=== PATIENT | female | born 1990 | race Caucasian/White ===

== ENCOUNTER → 2019-07-18 | Day surgery (SDC) | payer BC ==
[~2019-07-18] MED LIST: ACETAMINOPHEN 1000 MG/100 ML 100 ML IV ONE; ACETAMINOPHEN/CODEINE 300MG - 30MG TAB ONE; BUPIVACAINE 0.25%/EPI 30ML SDV INJ ONE; CEFAZOLIN SOD 1 GM VIAL ONE; CEFOXITIN 2GM/ D5W 50ML 50 ML IV ONE; DEXAMETHASONE SOD PHOS INJ 4 MG/ML VIAL ONE; FENTANYL CITRATE/PF 100MCG/2 ML INJ ONE; GLYCOPYRROLATE INJ 1MG/ 5 ML SYR ONE; KETOROLAC TROMETHAMINE 30 MG/ML VIAL ONE; LIDOCAINE HCL 2% LOCAL INJ 5 ML SDV VIAL INJ ONE; MIDAZOLAM HCL 2 MG/2 ML VIAL ONE; MORPHINE SULFATE INJ 10 MG/ML ONE; NEOSTIGMINE 5 MG/5ML SYR ONE; ONDANSETRON HCL INJ 2MG/ML 2ML 2 MG/ML VIAL ONE; POTASSIUM CHLORIDE 20 MEQ TAB CR PO ONE; PROPOFOL IV EMULSION 10 MG/ML 20 ML VIAL ONE; ROCURONIUM BROMIDE 10 MG/ML 5ML VIAL ONE; SEVOFLURANE INHAL SOLN 250 ML PEN BTL ONE; WELBUTRIN PO; ZOLOFT50 MG PO
--- OUTSIDE RECORDS SUMMARY | 2019-07-18 06:30 | XMS REPORT | Summary of Care ---
Author Author [facility] - Health Organization [facility] - Health Address Unknown Phone Unavailable Care Team Providers Care Ccnp Name Role Phone Kris Fragaaf Jean Claude PCP Reason for Referral * (Routine) Referred By Contact Referred To Contact Status Reason Specialty Diagnoses / Procedures Vinh Pandey [address] [address] New Request [facility] Diagnoses RUQ pain Gallstones P rocedures Discharge Follow-Up: Specialty Service [facility]; 1 Week * Radiology Services (STAT) Referred By Contact Referred To Contact Status Reason Specialty Diagnoses / Procedures Vinh Pandey FN[address] [address] New Request Diagnostic Diagnoses Radiology RUQ pain P rocedures US GALL BLADDER * Radiology Services (STAT) Referred By Contact Referred To Contact Status Reason Specialty Diagnoses / Procedures Vinh Pandey DIRECTOR OF PRODUCT DEVELOPMENT[address] [address] New Request Diagnostic Diagnoses Radiology RUQ pain P rocedures US GALL BLADDER Reason for Visit * Reason Comments Abdominal Pain * Auth/Cert Referred By Contact Referred To Contact Status Reason Specialty Diagnoses / Procedures [facility] Emergency Dept [address] [place] [address] Emergency Medicine Encounter Details Care Team Description Date Type Department Vinh Pandey FNP [address] [place], [place] [id number] Gallstones (Primary Dx); RUQ pain 06/23/2019 Emergency [facility] [address] [place] [address] Allergies No Known Allergiesdocumented as of this encounter (statuses as of 06/23/2019) Medications End Date Status Medication Sig Dispensed Refills Start Date Active proMETHazine 25 mg Take 1 tablet 24 tablet 0 tabletIndications: RUQ by mouth 9 pain, Gallstones every 6 (six) hours as needed for Nausea and Vomiting (N/V) for up to 24 doses. Active traMADol 50 mg Take 1 tablet 12 tablet 0 tabletIndications: RUQ by mouth 9 pain, Gallstones every 6 (six) hours as needed for Pain (scale 7-10) for up to 12 doses. 07/03/2019 Active famotidine (PEPCID) 20 mg Take 1 tablet 20 tablet 0 tabletIndications: RUQ by mouth 2 9 pain, Gallstones (two) times daily for 10 days. documented as of this encounter (statuses as of 06/23/2019) Active Problems No known active problemsdocumented as of this encounter (statuses as of 06/23/2019) Social History Date Tobacco Use Types Packs/Day Years Used Never Assessed Sex Assigned at Date Recorded Not on file Industry Job Start Date Occupation Not on file Not on file Not on file Travel End Travel History Travel Start No recent travel history available. documented as of this encounter Last Filed Vital Signs Reading Time Taken Comments Vital Sign 131/74 06/23/2019 4:02 PM CDT Blood Pressure 81 06/23/2019 4:02 PM CDT Pulse 36.4 C (97.5 F) 06/23/2019 1:15 PM CDT Temperature 18 06/23/2019 4:02 PM CDT Respiratory Rate 98% 06/23/2019 4:02 PM CDT Oxygen Saturation - - Inhaled Oxygen Concentration 122.5 kg (270 lb) 06/23/2019 1:15 PM CDT Weight - - Height - - Body Mass Index documented in this encounter Discharge Instructions * Instructions* Vinh Pandey, JEAN-PAUL - 06/23/2019 DIAGNOSIS 1. Gallstone 2. RUQ pain NO LIFE-THREATENING FINDINGS ON TODAY'S EXAM. PROCEDURES IN THE ER TODAY: Orders Placed This Encounter Procedures US GALL BLADDER CBC WITH DIFF BASIC METABOLIC PANEL (NA, K, CL, CO2, GLUCOSE, BUN, CREATININE, CA) POCT TEST CBC WITH DIFFERENTIAL MEDICATIONS ADMINISTERED IN THE ER TODAY: Medications famotidine (PEPCID (PF)) injection 20 mg (20 mg Slow IV Push Given 06/23/19 1407) maalox:diphenhydrAMINE:lidocaine2 %viscous 1:1:1: suspension (COMPOUNDED) (15 m L Oral Given 06/23/19 1408) NaCl 0.9% (NS) IV infusion 1,000 mL (0 mL Intravenous Stopped 06/23/19 153) FENTanyl PF (SUBLIMAZE (PF)) injection 25 mcg (25 mcg Slow IV Push Given 06/23/19 140) ondansetron (ZOFRAN (PF)) injection 4 mg (4 mg Slow IV Push Given 06/23/19 140) morpHINE injection 4 mg (4 mg Slow IV Push Given 06/23/19 1538) proMETHazine (PHENERGAN) tablet 25 mg (25 mg Oral Given 06/23/19 153) YOUR PRESCRIPTIONS AND [id number] MEDICATION RECOMMENDATIONS: New Prescriptions FAMOTIDINE (PEPCID) 20 MG TABLET Take 1 tablet by mouth 2 (two) times daily f or 10 days. PROMETHAZINE 25 MG TABLET Take 1 tablet by mouth every 6 (six) hours as need ed for Nausea and Vomiting (N/V) for up to 24 doses. TRAMADOL 50 MG TABLET Take 1 tablet by mouth every 6 (six) hours as needed f or Pain (scale 7-10) for up to 12 doses. SPECIAL CARE INSTRUCTIONS: [place] diet. Avoid fatty or fried foods. FOLLOW-UP RECOMMENDATIONS: RECOMMEND FOLLOW-UP WITH A PRIMARY CARE PROVIDER OR General icicle machine operator I N 2-5 DAYS, ESPECIALLY IF NO IMPROVEMENT IN SYMPTOMS. TO FOLLOW-UP WITHIN THE [facility], TRY THESE OPTIONS (CLINIC APPOIN TMENTS AVAILABLE ON LABR-MU-XNZB BASIS): 1. SCHEDULE AN APPOINTMENT ONLINE AT [email or web address][facility] 2. OR CALL THE [facility] ACCESS CENTER AT OR 3. OR CALL YOUR [facility] PHYSICIAN'S OFFICE DIRECTLY IF YOU ARE ALREADY AN ESTABLISH ED [facility] PATIENT. OR, YOU MAY FOLLOW-UP WITH A PROVIDER OF YOUR CHOICE, SUCH : 1. A PHYSICIAN OF YOUR CHOICE 2. [facility], . LOCATIONS IN [facility] 3. [facility], [address] [place], [place]; RETURN TO ER FOR WORSENING OF SYMPTOMS. * Attachments The following attachments cannot be sent through Care Everywhere.* Gallstones, What are (British) * Gallstones, Discharge Instructions (British) documented in this encounter Plan of Treatment Date/Time Name Type Priority Associated Diagnoses 06/23/2019 2:34 PM CDT US GALL BLADDER IMAGING STAT RUQ pain Health Maintenance Due Date Last Done Comments VARICELLA VACCINES (1 of 2002 2 - 13+ 2-dose series) DTaP,Tdap,and Td Vaccines 2008 (1 - Tdap) PAP SMEAR 2010 INFLUENZA VACCINE (#1) 2019 PNEUMOCOCCAL 0-64 YEARS Aged Out No longer eligible based COMBINED SERIES on patient's age to complete this topic documented as of this encounter Procedures Comments Procedure Name Priority Date/Time Associated Diagnosis US GALL BLADDER STAT 06/23/2019 RUQ pain 2:34 PM CDT Procedure Note - [facility], Radiant Results Inft User - 06/23/2019 3:07 PM CDT ABDOMINAL ULTRASOUND , LIMITED: HISTORY: RUQ pain, concern for choleycyst itis . COMPARISO N: None. FINDINGS: The liver is diffusely increased in echogenici ty and enlarged measuring 20.4 cm. No sonographi chandni detectable focal lesions are identified within the liver. No intrahepat ic biliary dilatation is present. The main portal vein demonstrat es normal hepatopeta l flow. Two hyperechoi c stones within the gallbladde r lumen are seen with posterior acoustic shadowing. No gallbladde r wall thickening , pericholec ystic fluid, or gallbladde r distention is seen to suggest acute cholecysti tis. No sonographi c Borja's sign is present. The common bile measures 0.5 cm. The pancreas normal in echogenici ty. The right kidney is normal in contour and echogenici ty. IMPRESSIO N Cholelith iasis without acute cholecysti tis. Hepatomeg bijal with fatty infiltrati on of the liver. CBC WITH DIFFERENTIAL STAT 06/23/2019 RUQ pain 2:11 PM CDT CBC WITH DIFF STAT 06/23/2019 RUQ pain 2:11 PM CDT BASIC METABOLIC PANEL STAT 06/23/2019 RUQ pain (NA, K, CL, CO2, GLUCOSE, 2:11 PM CDT BUN, CREATININE, CA) POCT TEST WIL 06/23/2019 RUQ pain 2:06 PM CDT documented in this encounter Results * CBC WITH DIFFERENTIAL (06/23/2019 2:11 PM CDT) WBC 10.30 4.30 - 11.10 [facility] 10*3/L [facility] RBC 4.92 3.93 - 5.25 10*6/L [facility] HGB 12.1 11.6 - 15.0 g/dL [facility] HCT 37.9 35.7 - 45.2 % [facility] MCV 77.0 (L) 80.6 - 95.5 fL [facility] MCH 24.6 (L) 25.9 - 32.8 pg [facility] MCHC 31.9 31.6 - 35.1 g/dL [facility] RDW-SD 39.9 39.0 - 49.9 fL [facility] RDW-CV 14.4 12.0 - 15.5 % [facility] PLT 369 (H) 166 - 358 10*3/L [facility] MPV 9.7 9.5 - 12.9 fL [facility] NRBC/100 WBC 0.0 0.0 - 10.0 /100 WBCs [facility] NRBC x10^3 <0.01 10*3/L [facility] GRAN MAT (NEUT) 79.4 % [facility] % [facility] IMM GRAN % 0.30 % [facility] LYMPH % 16.0 % [facility] MONO % 3.5 % [facility] EOS % 0.2 % [facility] BASO % 0.6 % [facility] GRAN MAT 8.18 (H) 1.88 - 7.09 10*3/uL [facility] x10^3(ANC) [facility] IMM GRAN x10^3 0.03 0.00 - 0.06 10*3/uL [facility] LYMPH x10^3 1.65 1.32 - 3.29 10*3/uL [facility] MONO x10^3 0.36 0.33 - 0.92 10*3/uL [facility] EOS x10^3 <0.03 (L) 0.03 - 0.39 10*3/uL [facility] BASO x10^3 0.06 0.01 - 0.07 10*3/uL [facility] Specimen Blood - ARM, RIGHT Performing Organization Address City/State/Zipcode Phone Number [facility] CLIA: [id number], [address] [place], [place] [id number] [facility] * BASIC METABOLIC PANEL (NA, K, CL, CO2, GLUCOSE, BUN, CREATININE, CA) (06/23/2019 2:11 PM CDT) NA 138 135 - 145 mmol/L [facility] K 5.3 (H)Comment: Slight 3.5 - 5.0 mmol/L [facility] hemolysis [facility] CL 103 98 - 108 mmol/L [facility] CO2 TOTAL 24 23 - 31 mmol/L [facility] AGAP 11 2 - 16 [facility] BUN 9Comment: Slight hemolysis 7 - 23 mg/dL [facility] GLUCOSE 121 (H) 70 - 110 mg/dL [facility] CREATININE 0.55 0.50 - 1.04 mg/dL [facility] SERVICES-[facility] CALCIUM 9.6 8.6 - 10.6 mg/dL [facility] eGFR 130.7 mL/min/1.73m2 [facility] Calculation [facility] ([facility]) eGFR 158.4 mL/min/1.73m2 [facility] Calculation SERVICES-[facility] ([facility]) Specimen Blood - ARM, RIGHT Narrative Performed At Association of Glomerular Filtration Rate (GFR) and Staging of Kidney Disease* [facility] + + + + [facility] | GFR (mL/min/1.73 m2)| With Kidney Damage|Without Kidney Damage CAMPUS + + + + |>90|Stage one| Normal + + + + |60-89|Stage two| Decreased GFR + + + + |30-59|Stage three| Stage three + + + + |15-29|Stage four | Stage four + + + + |<15 (or dialysis)|Stage five | Stage five + + + + *Each stage assumes the associated GFR level has been in effect for at least three months.Stages 1 to 5, with or without kidney disease, indicate chronic kidney disease. Notes: Determination of stages one and two (with eGFR >59mL/min/1.73 m2) requires estimation of kidney damage for at least three months as defined by structural or functional abnormalities of the kidney, manifested by either: Pathological abnormalities or Markers of kidney damage (including abnormalities in the composition of the blood or urine or abnormalities in imaging tests). Performing Organization Address City/State/Zipcode Phone Number [facility] CLIA: [id number], [address] [place] [address] [facility] * POCT TEST (06/23/2019 2:06 PM CDT) POCT PREG negative On board present controls acceptable with C Line POCT PREG LOT # [id number] POCT PREG TEST 06/28/2020 DATE Specimen Urine - URINE, CLEAN CATCH documented in this encounter Visit Diagnoses Diagnosis Gallstones - Primary Calculus of gallbladder without mention of cholecystitis or obstruction RUQ pain Abdominal pain, right upper quadrant documented in this encounter Administered Medications Action Date Dose Rate Site Medication Order MAR Action 06/23/2019 2:07 PM CDT 20 mg famotidine (PEPCID (PF)) injection 20 mg Given 20 mg, Slow IV Push, ONCE, 1 dose, 06/23/19 at 1430, WIL 06/23/2019 2:07 PM CDT 25 mcg FENTanyl PF (SUBLIMAZE (PF)) injection Given 25 mcg 25 mcg, Slow IV Push, ONCE, 1 dose, 06/23/19 at 1430, STAT 06/23/2019 2:08 PM CDT 15 mL maalox:diphenhydrAMINE:lidocaine2 Given %viscous 1:1:1: suspension (COMPOUNDED) 15 mL, Oral, ONCE, 1 dose, Sun06/23/19 at 1430, Routine 06/23/2019 3:38 PM CDT 4 mg morpHINE injection 4 mg Given 4 mg, Slow IV Push, ONCE, 1 dose, Sun06/23/19 at 1630, STAT 06/23/2019 2:07 PM CDT 1,000 mL 999 mL/hr NaCl 0.9% (NS) IV infusion 1,000 mL New Bag at 999 mL/hr, Intravenous, ONCE, 1 dose, Sun06/23/19 at 1430, Routine 06/23/2019 2:07 PM CDT 4 mg ondansetron (ZOFRAN (PF)) injection 4 mg Given 4 mg, Slow IV Push, ONCE, 1 dose, Sun06/23/19 at 1445, WIL 06/23/2019 3:37 PM CDT 25 mg proMETHazine (PHENERGAN) tablet 25 mg Given 25 mg, Oral, ONCE, 1 dose, Sun06/23/19 at 1630, WIL documented in this encounter Insurance Type Payer Benefit Subscriber ID Effective Phone Address Plan / Dates Group PPO/POS [place] OF [id number] 2018-P [phone] [facility] [id number] OUT OF [facility] [id number] documented as of this encounter"
--- OUTSIDE RECORDS SUMMARY | 2019-07-18 06:30 | XMS REPORT ---
Author Author [facility] Address Unknown Phone Unavailable Care Team Providers Care Co Founder And Director Name Role Phone Unavailable Unavailable Payers Payer Name Policy Type Policy Number Effective Date Expiration Date Problems This patient has no known problems. Allergies, Adverse Reactions, Alerts Allergy Name Allergy Type Status Severity Reaction(s) Onset Date Inactive Date Treating Clinician Comments No Known Allergies DA Active U 2019-01-15 00:00:00 No Known Allergies DA Active U 2013-08-26 00:00:00 Medications This patient has no known medications. Results Test Description Test Time Test Comments Text Results Atomic Results Result Comments COMPREHENSIVE METABOLIC PANEL 2019-01-15 12:54:00 SODIUM (test code=NA) 137 mEq/L 134-147 POTASSIUM (test code=K) 4.3 mEq/L 3.4-5.0 CHLORIDE (test code=CL) 106 mEq/L 100-108 CARBON DIOXIDE (test code=CO2) 25 mEq/L 21-33 ANION GAP (test code=GAP) 10 0-20 GLUCOSE (test code=GLU) 120 mg/dL 70-110 BLOOD UREA NITROGEN (test code=BUN) 7 mg/dL 7-18 GLOMERULAR FILTRATION RATE (test code=GFR) 118.2 110-120 Units of measure=ml/min/1.73 m2 CREATININE (test code=CREAT) 0.6 mg/dL 0.6-1.3 TOTAL PROTEIN (test code=PROT) g/dL 6.4-8.2 ALBUMIN (test code=ALB) 3.80 g/dL 3.4-5.0 CALCIUM (test code=CA) 9.1 mg/dL 8.0-10.5 BILIRUBIN TOTAL (test code=BILT) mg/dL 0.0-1.0 SGOT/AST (test code=AST) 13 IUnit/L 15-37 SGPT/ALT (test code=ALT) 13 IUnit/L 15-65 ALKALINE PHOSPHATASE TOTAL (test code=ALKP) IUnit/L 20-125 [id number] 12:54:00* Test Item Value Reference Range Comments LIPASE (test code=LIP) 84 IUnit/L 73-393 HCG SERUM [id number] 12:54:00* Test Item Value Reference Range Comments HCG SERUM QUAL (test code=HCGQL) SERUM NEGATIVE NEGATIVE COMPREHENSIVE METABOLIC [id number] 12:54:00* Test Item Value Reference Range Comments SODIUM (test code=NA) 137 mEq/L 134-147 POTASSIUM (test code=K) 4.3 mEq/L 3.4-5.0 CHLORIDE (test code=CL) 106 mEq/L 100-108 CARBON DIOXIDE (test code=CO2) 25 mEq/L 21-33 ANION GAP (test code=GAP) 10 0-20 GLUCOSE (test code=GLU) 120 mg/dL 70-110 BLOOD UREA NITROGEN (test code=BUN) 7 mg/dL 7-18 GLOMERULAR FILTRATION RATE (test code=GFR) 118.2 110-120 Units of measure=ml/min/1.73 m2 CREATININE (test code=CREAT) 0.6 mg/dL 0.6-1.3 TOTAL PROTEIN (test code=PROT) 7.6 g/dL 6.4-8.2 ALBUMIN (test code=ALB) 3.80 g/dL 3.4-5.0 CALCIUM (test code=CA) 9.1 mg/dL 8.0-10.5 BILIRUBIN TOTAL (test code=BILT) 0.20 mg/dL 0.0-1.0 SGOT/AST (test code=AST) 13 IUnit/L 15-37 SGPT/ALT (test code=ALT) 13 IUnit/L 15-65 ALKALINE PHOSPHATASE TOTAL (test code=ALKP) 135 IUnit/L 20-125 [id number] 12:54:00* Test Item Value Reference Range Comments LIPASE (test code=LIP) 84 IUnit/L 73-393 HCG SERUM [id number] 12:54:00* Test Item Value Reference Range Comments HCG SERUM QUAL (test code=HCGQL) SERUM NEGATIVE NEGATIVE COMPREHENSIVE METABOLIC [id number] 12:50:00* Test Item Value Reference Range Comments SODIUM (test code=NA) mEq/L 134-147 POTASSIUM (test code=K) mEq/L 3.4-5.0 CHLORIDE (test code=CL) mEq/L 100-108 CARBON DIOXIDE (test code=CO2) mEq/L 21-33 ANION GAP (test code=GAP) 0-20 GLUCOSE (test code=GLU) mg/dL 70-110 BLOOD UREA NITROGEN (test code=BUN) mg/dL 7-18 GLOMERULAR FILTRATION RATE (test code=GFR) 110-120 CREATININE (test code=CREAT) mg/dL 0.6-1.3 TOTAL PROTEIN (test code=PROT) g/dL 6.4-8.2 ALBUMIN (test code=ALB) g/dL 3.4-5.0 CALCIUM (test code=CA) mg/dL 8.0-10.5 BILIRUBIN TOTAL (test code=BILT) mg/dL 0.0-1.0 SGOT/AST (test code=AST) IUnit/L 15-37 SGPT/ALT (test code=ALT) IUnit/L 15-65 ALKALINE PHOSPHATASE TOTAL (test code=ALKP) IUnit/L 20-125 [id number] 12:50:00* Test Item Value Reference Range Comments LIPASE (test code=LIP) IUnit/L 73-393 HCG SERUM [id number] 12:50:00* Test Item Value Reference Range Comments HCG SERUM QUAL (test code=HCGQL) SERUM NEGATIVE NEGATIVE URINALYSIS [id number] 12:38:00* Test Item Value Reference Range Comments UA COLOR (test code=COLU) YELLOW YEL/STRAW UA APPEARANCE (test code=APPU) CLEAR CLEAR UA GLUCOSE DIPSTICK (test code=DGLUU) NEGATIVE NEGATIVE UA BILIRUBIN DIPSTICK (test code=BILU) NEGATIVE NEGATIVE UA KETONE DIPSTICK (test code=KETU) NEGATIVE NEGATIVE UA SPECIFIC GRAVITY (test code=SGU) 1.025 1.005-1.030 UA BLOOD DIPSTICK (test code=JOSH) NEGATIVE NEGATIVE UA PH DIPSTICK (test code=NAYELY) 6.0 5.0-7.0 UA PROTEIN DIPSTICK (test code=PROU) NEGATIVE NEGATIVE UA UROBILINIOGEN DIPSTICK (test code=URO) 0.2 mg/dL 0.2-1.0 UA NITRITE DIPSTICK (test code=ERNESTINE) NEGATIVE NEGATIVE UA LEUKOCYTE ESTERASE DIPSTICK (test code=LEUU) NEGATIVE NEGATIVE UA WBC (test code=WBCU) 0-3 WBC/HPF 0-3 UA RBC (test code=RBCU) 0-3 RBC/HPF 0-3 UA BACTERIA (test code=BACU) NONE SEEN /HPF NONE SEEN UA SQUAMOUS CELLS (test code=SQU) 0-5 /HPF NONE SEEN UA MUCUS (test code=MUCU) TRACE /LPF NONE SEEN CBC W/AUTO [id number] 12:22:00* Test Item Value Reference Range Comments WHITE BLOOD CELL (test code=WBC) 8.70 x10 3/uL 4.5-11.0 RED BLOOD CELL (test code=RBC) 4.78 x10 6/uL 3.54-5.02 HEMOGLOBIN (test code=HGB) 11.7 g/dL 11.0-15.0 HEMATOCRIT (test code=HCT) 38.3 % 33.0-45.0 MEAN CELL VOLUME (test code=MCV) 80.1 fL 81.0-99.0 MEAN CELL HGB (test code=MCH) 24.5 pg 27.0-33.0 MEAN CELL HGB CONCETRATION (test code=MCHC) 30.5 g/dL 33.0-37.0 RED CELL DISTRIBUTION WIDTH CV (test code=RDW) 14.4 % 11.5-14.5 RED CELL DISTRIBUTION WIDTH SD (test code=RDW-SD) 42.4 fL 37.0-54.0 PLATELET COUNT (test code=PLT) 368 x10 3/uL 150-400 MEAN PLATELET VOLUME (test code=MPV) 9.4 fL 7.0-9.0 NEUTROPHIL % (test code=NT%) 78.6 % 56.0-77.0 IMMATURE GRANULOCYTE % (test code=IG%) 0.3 % 0.0-2.0 LYMPHOCYTE % (test code=LY%) 17.2 % 14.0-32.0 MONOCYTE % (test code=MO%) 3.2 % 4.8-9.0 EOSINOPHIL % (test code=EO%) 0.1 % 0.3-3.7 BASOPHIL % (test code=BA%) 0.6 % 0.0-2.0 NUCLEATED RBC % (test code=NRBC%) 0.0 % 0-0 NEUTROPHIL # (test code=NT#) 6.83 x10 3/uL 2.0-7.6 IMMATURE GRANULOCYTE # (test code=IG#) 0.03 x10 3/uL 0.00-0.03 LYMPHOCYTE # (test code=LY#) 1.50 x10 3/uL 1.0-3.8 MONOCYTE # (test code=MO#) 0.28 x10 3/uL 0.1-0.8 EOSINOPHIL # (test code=EO#) 0.01 x10 3/uL 0.0-0.2 BASOPHIL # (test code=BA#) 0.05 x10 3/uL 0.0-0.2 NUCLEATED RBC # (test code=NRBC#) 0.00 x10 3/uL 0.0-0.1 MANUAL DIFF REQUIRED (test code=MDIFF) NO - US ABDOMEN [id number] 11:50:00 Name: LATASHA PARKER [facility] : 1990 Age/S: 28 / F [address] [place] [address] Unit #: [id number] Loc: [place] [address] Phys: Donell Leija Acct: [id number] Dis Date: Status: REG ER PHONE #: [phone] Exam Date: 01/15/2019 1146 FAX #: [phone] Reason: RUQ pain, hx of gallstones EXAMS: CPT CODE: [id number] US ABDOMEN LTD [id number] PROCEDURE: ABDOMINAL ULTRASOUND INDICATION: 28-year-old female with right upper quadrant pain COMPARISON: US abdomen 03/11/2016 TECHNIQUE: Sonographic evaluation of the abdomen was performed with supplemental color and pulsed Doppler. FINDINGS: LIVER: The liver is normal in size, contour and morphology with normal parenchymal echogenicity. Hepatopedal flow in the main portal vein. GALLBLADDER: Calcified stones noted. No pericholecystic fluid or wall thickening. Negative sonographic Borja sign. BILE DUCTS: No biliary dilatation. The common duct measures 3 mm. PANCREAS: The visualized pancreas appears normal. The tail is obscured by bowel gas. KIDNEYS: The right kidney measures 12.2 cm in length. Normal contour and parenchymal echogenicity. There is no hydronephrosis, nephrolithiasis, mass lesion or perinephric collection. Additional comments: No free intraperitoneal fluid. IMPRESSION: 1. Cholelithiasis without evidence of acute cholecystitis. SL: [id number] at 1150 Reported and signed by: Jennifer Luevano M.D. CC: Aki VOGEL Technologist: Anjelica Gould RDMS(Mary)(BR) Trnscb Date/Time: 01/15/2019 (4410) [id number] Orig Print D/T: S: 01/15/2019 (8023) Probe: PAGE 1 Signed Report
[2019-07-18 07:52] LABS: BASOPHILS # (AUTO) 0.1 (0.0-0.1); BASOPHILS % 0.6 % (0.0-1.0); EOSINOPHILS # (AUTO) 0.1 (0.0-0.4); EOSINOPHILS % 1.1 % (0.0-6.0); HEMATOCRIT 38.4 % (34.2-44.1); HEMOGLOBIN 12.1 g/dL (12.0-16.0); LYMPHOCYTES # (AUTO) 2.8 (1.0-3.2); LYMPHOCYTES % 31.9 % (18.0-39.1); MEAN CORPUSCULAR HEMOGLOBIN 24.3 pg (28-32); MEAN CORPUSCULAR HGB CONC 31.5 g/dL (31-35); MEAN CORPUSCULAR VOLUME 77.3 fL (81-99); MONOCYTES # (AUTO) 0.5 (0.2-0.8); MONOCYTES % 5.7 % (4.4-11.3); NEUTROPHILS # (AUTO) 5.3 (2.1-6.9); NEUTROPHILS % 60.4 % (38.7-80.0); PLATELET COUNT 355 x10e3/uL (140-360); RED BLOOD COUNT 4.97 x10e6/uL (3.6-5.1); RED CELL DISTRIBUTION WIDTH 14.8 % (11.7-14.4)
[2019-07-18 08:08] LABS: CLARITY,URINE HAZY (CLEAR); COLOR,URINE YELLOW (YELLOW)
[2019-07-18 08:09] LABS: BILIRUBIN,URINE NEGATIVE (NEGATIVE); KETONES,URINE NEGATIVE (NEGATIVE); LEUKOCYTE ESTERASE ,URINE NEGATIVE (NEGATIVE); NITRITE,URINE NEGATIVE (NEGATIVE); PREGNANCY TEST, URINE NEGATIVE (NEGATIVE); PROTEIN,URINE DIPSTICK TRACE (NEGATIVE); URINE UROBILINOGEN 0.2 mg/dL (0.2 - 1)
[2019-07-18 08:14] LABS: ALANINE AMINOTRANSFERASE 13 IU/L (0-55); ALBUMIN 3.7 g/dL (3.5-5.0); ALKALINE PHOSPHATASE 111 IU/L (40-150); ANION GAP 12.3 mmol/L (8-16); BLOOD UREA NITROGEN 6 mg/dL (7-26); BUN/CREATININE RATIO 8 (6-25); CALCIUM 9.5 mg/dL (8.4-10.2); CARBON DIOXIDE 27 mmol/L (22-29); CHLORIDE 100 mmol/L (98-107); CREATININE, SERUM 0.73 mg/dL (0.57-1.11); EST GLOMERULAR FILTRATION RATE > 60 ML/MIN (60-); GLUCOSE 106 mg/dL (74-118); POTASSIUM 3.3 mmol/L (3.5-5.1); SODIUM 136 mmol/L (136-145)
--- NOTE | 2019-07-18 12:53 | Operative Report ---
DATE OF PROCEDURE: 07/18/2019 SURGEON: Elijah Villalobos MD PREOPERATIVE DIAGNOSES: Cholelithiasis, chronic cholecystitis, morbid obesity, fatty liver infiltration. POSTOPERATIVE DIAGNOSES: Cholelithiasis, chronic cholecystitis, morbid obesity, fatty liver infiltration. PROCEDURE PERFORMED: Laparoscopic cholecystectomy. ANESTHESIA: General. ESTIMATED BLOOD LOSS: Minimal. DRAINS: None. COMPLICATION: None. BIODIES[employer] TECHNOLOGY MANAGER: None. INDICATION AND FINDINGS: The patient is a morbidly obese 28-year-old female, who has a longstanding history of right upper quadrant pain associated with fatty food ingestion. She was recently diagnosed with gallstones and fatty liver infiltration by ultrasound during the emergency room. Intraoperative findings were chronic cholecystitis with subacute component and there was a long gallbladder that containing clear fluid almost in the hydrops type of situation with thickened wall. There was no ductal dilatation. She had three large stones. The cystic duct and common bile duct were identified prior to clipping any one of those two structures after the triangle of face safety was developed. DESCRIPTION OF PROCEDURE: With the patient lying on the operative table in the supine position after administration of general anesthesia, she was prepped and draped for laparoscopic cholecystectomy. Because of her large size, we started a pneumoperitoneum in the right upper quadrant and after we did that, an insufflated pneumoperitoneum to 15 mmHg after the saline drop test was performed. We then placed a 5 mm trocar and then placed a 5 mm camera under direct vision. We placed a 5 mm camera in that location and then the umbilical site, which was free of any adhesions. We placed a 10/11 trocar there as well as in the subxiphoid port after we introduced the 10 mm camera in the umbilical site. Finally, we placed a right anterior axillary line trocar using 5 mm as well as a 5th trocar in the left upper quadrant due to the large size of the patient using a 5 mm trocar also. After we did that, we began the dissection of the gallbladder, which was quite a long and it was thickened wall, but we were able to grab it and there were multiple adhesions of the omentum as well as part of the duodenum to the gallbladder, which were sharply and bluntly with retraction removed. Finally, we expose the neck of the gallbladder and then identified a large stone in that area. We retracted the gallbladder cephalad and laterally and inferiorly until we were able to identified the cystic duct, the common bile duct, the cystic artery as well as a posterior branch all. We also developed a plate of the liver. At that point once we had identified the triangle of safety, we went ahead and clipped the cystic artery first because it was anterior to the cystic duct and then the cystic duct was also clipped between titanium clips. The posterior artery was also clipped and transected and then we carefully mobilized the gallbladder from the liver bed using a combination of traction, countertraction, hydrodissection, electrocautery and sharp dissection until we were able to detach the gallbladder placed in an endobag and removed with multiple large stones. After we did that, we inspected the operative field. The right upper quadrant was inspected and irrigated. Some minor oozing from the gallbladder bed fossa was cauterized after ascertaining that there was no bile leak, no bleeding, no apparent bowel injury. After having irrigated the operative field until the effluent fluid was clear. When we released the pneumoperitoneum and closed the wound using one Vicryl for the umbilical fascia, 2-0 chromic for the soft tissues with the large size of the patient and the subcuticular plane was closed using 3-0 Vicryl. The subcutaneous plane in the subxiphoid port was closed using 3-0 Vicryl. Then, the skin of all the ports was closed using ariel 0.25% Marcaine with epinephrine was given as local block at the end of the case. The patient tolerated the procedure well, was taken to recovery room in stable condition. The patient's was informed of the intraoperative findings and there will be referred to the bariatric surgeon if they wish to go that route since she has a BMI of 42.2. Of note is also in the fact the patient was found to have an umbilical hernia, which with an attempt to repair at this time. Due to the large size of the patient, which most likely would have resulted in a delay of surgery and another recurrence. MD MAURICE Weir/JORGE /[id number]
[2019-07-18 13:45] VITALS: BP 128/73
== END | disposition home or self-care (01) ==
LOC: OR 06:27
PROVIDERS: ATTEND Surgery
DX: K80.10 Calculus of gallbladder with chronic cholecystitis without obstruction (principal); E66.01 Morbid (severe) obesity due to excess calories; K76.0 Fatty (change of) liver, not elsewhere classified; Z68.41 Body mass index [BMI] 40.0-44.9, adult
CPT/HCPCS: 36415; 47562; 80053; 81003; 81025; 85025; 88304; C1766; J0131; J0690; J0694; J1100; J1885; J2001; J2250; J2270; J2405; J2704; J3010; J3490